=== PATIENT | female | born 1950 | race Caucasian/White ===

== ENCOUNTER 2021-01-05 07:08 | Day surgery (SDC) | payer MEDICARE, MEDICAID ==
[2020-12-31 15:43] LABS: COLOR,URINE YELLOW (Yellow); GLUCOSE, URINE NEGATIVE (Neg); KETONES,URINE NEGATIVE (Neg); LEUKOCYTE ESTERASE ,URINE NEGATIVE (Neg); NITRITES, URINE NEGATIVE (Neg); OCCULT BLOOD,URINE TRACE-INTACT (Neg); PROTEIN,URINE NEGATIVE (Neg); UROBILINOGEN,URINE 0.2 E.U/dL (0.2-1.0)
[2020-12-31 15:44] LABS: CLARITY,URINE SLIGHTLY CLOUDY (Clear); UA COLLECTION TYPE CLN CATCH MIDSTREAM
[2020-12-31 15:48] LABS: BASOPHILS # (AUTO) 0.1 X10'3 (0-0.2); BASOPHILS % (AUTO) 0.7 % (0-1); EOSINOPHILS # (AUTO) 0.3 X10'3 (0-0.9); EOSINOPHILS % (AUTO) 2.5 % (0-6); LYMPHOCYTES # (AUTO) 1.7 X10'3 (1.1-4.8); MEAN CORPUSCULAR HEMOGLOBIN 32.3 PG (27.0-31.0); MEAN CORPUSCULAR HGB CONC 33.8 g/dL (33.0-36.5); MEAN CORPUSCULAR VOLUME 95.4 FL (78-98); MEAN PLATELET VOLUME 7.1 FL (7.4-10.4); MONOCYTES # (AUTO) 0.7 X10'3 (0-0.9); MONOCYTES % (AUTO) 6.9 % (2-12); NEUTROPHILS # (AUTO) 7.8 X10'3 (1.8-7.7); NEUTROPHILS % (AUTO) 73.9 % (42-75); PRE OP HEMATOCRIT 41.7 % (35.0-45.0); PRE OP HEMOGLOBIN 14.1 g/dL (12.0-16.0); PRE OP PLATELET COUNT 301 X10'3 (140-440); RED BLOOD COUNT 4.37 X10'6 (4.20-5.60); RED CELL DISTRIBUTION WIDTH 14.9 % (11.5-14.5)
[2020-12-31 15:49] LABS: BACTERIA,URINE 1+ /HPF (Neg); MUCUS STRANDS NONE SEEN /LPF (Neg); SQUAMOUS EPITHELIAL CELL,UR FEW /LPF (FEW); WBC,URINE 0-4 /HPF (0-4)
[2020-12-31 15:50] LABS: STARCH,URINE FEW /HPF (NEGATIVE)
[2020-12-31 15:54] LABS: PRE OP PROTIME 10.7 SECONDS (9.0-12.0)
[2020-12-31 15:55] LABS: ALBUMIN 3.8 G/DL (3.4-5.0); ALKALINE PHOSPHATASE 109 IU/L (46-116); BLOOD UREA NITROGEN 14 MG/DL (7-18); BUN/CREATININE RATIO 10.1 (6.6-38.0); CALCIUM 9.1 MG/DL (8.5-10.1); CHLORIDE 103 MMOL/L (99-107); CREATININE 1.39 MG/DL (0.40-0.90); PRE OP ALT 18 U/L (30-65); PRE OP ANION GAP 10 (8-16); PRE OP AST 14 U/L (10-37); PRE OP BILIRUB, TOTAL 0.5 MG/DL (0.0-1.0); PRE OP POTASSIUM 4.3 MMOL/L (3.4-5.1); PRE OP SODIUM 138 MMOL/L (135-145); TOTAL CARBON DIOXIDE 25.5 MMOL/L (24-32); TOTAL PROTEIN 7.8 G/DL (6.4-8.2); eGFR 37 ML/MIN
[2020-12-31 15:57] LABS: PRE OP GLUCOSE 110 MG/DL (70-104)
[~2021-01-05] VITALS: Ht 185.4 cm; Wt 79.0 kg
[2021-01-05] VITALS (9 sets, daily range): BP systolic 98–146; BP diastolic 42–64
[~2021-01-05 07:08] MED LIST: ALPR0.5T9 PO; AMLO2.5T5 PO; ASPI-280 PO; ATOR20TA66 PO; CARV-50 PO; DIPH25CA83 PO; DOCUMENT DATE & TIME OF BETA-BLOCKER PO ONE; FERR325T32 PO; GABA-530 PO; IPRA4AER PO; LEVO125T8 PO; LOPE-144 PO; OMEP-50 PO; VITA-268 PO; albuterol 2.5 MG/3 ML nebule NEB ONE; cefazolin/dext.iso 2gm/100ml IV ONE; clindamycin-Cleocin 900mg/D5W 50 ML IV ONE; famotidine 20mg tablet PO ONE; normal saline 1000ml 1,000 ML IV SCH
[2021-01-05] MEDS ORDERED: BUPIVAcaine/PF 2.5 mg/ml (0.25%) 30ml vial ONE ×2 (07:39→09:42)
[2021-01-05] MEDS ORDERED: BUPIVACAINE liposomal/PF 13.3 MG/ML vial IM ONE (09:42)
[2021-01-05] MEDS ORDERED: midazolam 1 mg/ML 2ml injection ONE (09:52)
[2021-01-05] MEDS ORDERED: fentaNYL /PF 50mcg/ml 5ml ampule ONE (09:52)
[2021-01-05] MEDS ORDERED: morphine 2 MG/ML inj. syringe IV PRN (10:10)
[2021-01-05] MEDS ORDERED: acetaminophen 1,000mg/100ml IV 100 ML IV PRN (10:10)
[2021-01-05] MEDS ORDERED: ondansetron/PF 4mg/2ml inj IV PRN (10:10)
[2021-01-05] MEDS ORDERED: ringers solution, lacted 1,000 ML IV SCH (10:10)
[2021-01-05] MEDS ORDERED: proCHLORperazine 10 MG/2 ml inj IV PRN (10:10)
[2021-01-05] MEDS ORDERED: morphine 4 MG/ML inj SYRINge IV PRN (10:10)
[2021-01-05] MEDS ORDERED: labetalol 20mg/4ml (5mg/ml) syringe IV PRN (10:10)
[2021-01-05] MEDS ORDERED: meperidine/PF 25mg/ml syringe IV PRN ×3 (10:10)
[2021-01-05] MEDS ORDERED: hydrALAZINE 20mg/ml inj. IV PRN (10:10)
[2021-01-05] MEDS ORDERED: sevoflurane 250ml liquid IH ONE (10:25)
[2021-01-05] MEDS ORDERED: LIDOcaine 2% 5ml jelly ONE (10:34)
[2021-01-05] MEDS ORDERED: LIDOcaine 2% (20mg/ml) 5ml vial ONE (11:25)
[2021-01-05] MEDS ORDERED: propofol inj 20 ML IV ONE (11:25)
[2021-01-05] MEDS ORDERED: ondansetron/PF 4mg/2ml inj ONE (11:25)
[2021-01-05] MEDS ORDERED: dexamethasone sod phosphate 4mg/ml inj. ONE (11:25)
[2021-01-05] MEDS ORDERED: rocuronium 10mg/ml inj IV ONE (11:25)
[2021-01-05] MEDS ORDERED: glycopyrrolate 0.2mg/ml inj ONE (11:26)
[2021-01-05] MEDS ORDERED: neostigmine methylsulfate 1 MG/ML 10ml vial ONE (11:26)
[2021-01-05] MEDS ORDERED: ipratropium/albuterol 3ml nebule NEB PRN (12:35)
--- NOTE | 2021-01-05 13:12 | NUR ---
ALL DISCHARGE CRITERIA HAS BEEN MET. VSS, PAIN AT A TOLERABLE LEVEL, VOIDING AND ABLE TO SAFELY AMBULATE AND TRANSFER SELF. IV TAKEN OUT WITHOUT ANY COMPLICATIONS. ALL DISCHARGE INSTRUCTIONS COVERED WITH PATIENT AND ALL QUESTIONS ANSWERED. PATIENT TAKEN OUT VIA WHEELCHAIR TO PERSONAL VEHICLE WHERE FAMILY/FRIEND DROVE PATIENT HOME. IS AND DEEP BREATHING AND COUGHING INSTRUCTIONS GIVEN. PATIENT 90% UPON LEAVING ON ROOM AIR. ( PER PRE SURGERY) VSS. SPOUSE GIVEN INSTRUCTIONS ON PAIN MEDS AND WHERE TO REPAIRER AND CHECKER AND PRECAUTIONS WELL. ABDOMINAL SITES ARE ALL CDI . Addendum: 01/05/21 at 1336 by David Garcia RN, RN Amended: Links added.
== END 2021-01-05 13:12 | disposition home or self-care (01) ==
LOC: PAS 07:08
PROVIDERS: ATTEND Surgery
DX: K43.9 Ventral hernia without obstruction or gangrene (principal); J43.9 Emphysema, unspecified; I10 Essential (primary) hypertension; E03.9 Hypothyroidism, unspecified; F41.0 Panic disorder [episodic paroxysmal anxiety]; G62.9 Polyneuropathy, unspecified; F17.210 Nicotine dependence, cigarettes, uncomplicated; Z85.048 Personal history of other malignant neoplasm of rectum, rectosigmoid junction, and anus; Z90.710 Acquired absence of both cervix and uterus; Z98.890 Other specified postprocedural states; Z87.01 Personal history of pneumonia (recurrent); Z88.2 Allergy status to sulfonamides; Z88.8 Allergy status to other drugs, medicaments and biological substances; Z88.0 Allergy status to penicillin; Z95.1 Presence of aortocoronary bypass graft; Z90.49 Acquired absence of other specified parts of digestive tract; Z79.01 Long term (current) use of anticoagulants; Z79.899 Other long term (current) drug therapy; Z82.49 Family history of ischemic heart disease and other diseases of the circulatory system
CPT/HCPCS: 36415; 49652; 64488; 80053; 81001; 82948; 85025; 85610; 85730; 93005; 94640; 94760; C1758; C9290; J1100; J2001; J2250; J2405; J2704; J2710; J3010; J3490; J7030; J7120; S2900; A4215; A4618

== ENCOUNTER 2022-09-06 08:35 | Day surgery (SDC) | payer MEDICARE, MEDICAID ==
[~2022-09-06] VITALS: Ht 165.1 cm; Wt 73.4 kg
[2022-09-06] VITALS (15 sets, daily range): BP systolic 102–159; BP diastolic 37–76
[~2022-09-06 08:35] MED LIST changes: -DOCUMENT DATE & TIME OF BETA-BLOCKER PO ONE; -OMEP-50 PO; +OMEP20CA16 PO; -albuterol 2.5 MG/3 ML nebule NEB ONE; -cefazolin/dext.iso 2gm/100ml IV ONE; -clindamycin-Cleocin 900mg/D5W 50 ML IV ONE; -famotidine 20mg tablet PO ONE; -normal saline 1000ml 1,000 ML IV SCH
[2022-09-06] MEDS ORDERED: albumin 25% 100mL bottle x 1 IV PRN (09:15)
[2022-09-06] MEDS ORDERED: normal saline 1000ml 1,000 ML IV PRN (09:15)
[2022-09-06] MEDS ORDERED: ALBUTEROL (09:22)
[2022-09-06] MEDS ORDERED: CITA20TA26 PO (09:23)
[2022-09-06] MEDS ORDERED: ALPR0.5T8 PO (09:23)
[2022-09-06] MEDS ORDERED: [UNRECOGNIZED DRUG - OTHER] PO (09:29)
[2022-09-06] MEDS ORDERED: NITR0.4T51 SL (09:29)
[2022-09-06] MEDS ORDERED: IPRA4AER IH (09:29)
[2022-09-06 09:51] LABS: BASOPHILS # (AUTO) 0.1 X10'3 (0-0.2); BASOPHILS % (AUTO) 1.2 % (0-1); EOSINOPHILS # (AUTO) 0.2 X10'3 (0-0.9); HEMATOCRIT 40.5 % (35.0-45.0); HEMOGLOBIN 13.5 g/dl (12.0-16.0); LYMPHOCYTES # (AUTO) 1.9 X10'3 (1.1-4.8); LYMPHOCYTES % (AUTO) 24.8 % (21-51); MEAN CORPUSCULAR HEMOGLOBIN 31.6 PG (27.0-31.0); MEAN CORPUSCULAR HGB CONC 33.3 g/dL (33.0-36.5); MEAN CORPUSCULAR VOLUME 94.8 FL (78-98); MEAN PLATELET VOLUME 7.2 FL (7.4-10.4); MONOCYTES # (AUTO) 0.6 X10'3 (0-0.9); MONOCYTES % (AUTO) 7.3 % (2-12); NEUTROPHILS % (AUTO) 64.7 % (42-75); PLATELET COUNT 277 X10'3 (140-440); RED BLOOD COUNT 4.27 X10'6 (4.20-5.60); RED CELL DISTRIBUTION WIDTH 14.4 % (11.5-14.5); WHITE BLOOD COUNT 7.7 X10'3 (4.5-11.0)
[2022-09-06 09:53] LABS: ALBUMIN 3.3 G/DL (3.4-5.0); ANION GAP 10 (8-16); BLOOD UREA NITROGEN 12 MG/DL (7-18); BUN/CREATININE RATIO 9.8 (6.6-38.0); CALCIUM 8.7 MG/DL (8.5-10.1); CHLORIDE 104 MMOL/L (99-107); CREATININE 1.22 MG/DL (0.40-0.90); SODIUM 137 MMOL/L (135-145); TOTAL CARBON DIOXIDE 23.3 MMOL/L (24-32); eGFR 43 ML/MIN
[2022-09-06] MEDS ORDERED: midazolam 1 mg/ML 2ml injection ONE (10:26)
[2022-09-06] MEDS ORDERED: fentaNYL/PF 50MCG/1 ML 2ML syringe ONE (10:26)
[2022-09-06 10:33] LABS: GLUCOSE 96 MG/DL (70-104)
== END 2022-09-06 15:20 | disposition home or self-care (01) ==
LOC: SSTAY O 08:35
PROVIDERS: ATTEND Radiology Vascular & Interventional Radiology
DX: R91.8 Other nonspecific abnormal finding of lung field (principal); C34.92 Malignant neoplasm of unspecified part of left bronchus or lung; Z88.0 Allergy status to penicillin; Z88.2 Allergy status to sulfonamides; Z88.8 Allergy status to other drugs, medicaments and biological substances; Z79.899 Other long term (current) drug therapy; Z79.82 Long term (current) use of aspirin; Z79.01 Long term (current) use of anticoagulants; Z85.41 Personal history of malignant neoplasm of cervix uteri; Z85.048 Personal history of other malignant neoplasm of rectum, rectosigmoid junction, and anus
CPT/HCPCS: 32408; 36415; 71045; 80048; 85025; 85610; 88305; 88341; 88342; J2250; J3010; J7030; 77012; 88173; 99152; 99153; A4615; A6449

== ENCOUNTER 2022-10-03 08:34 | Day surgery (SDC) | payer MEDICARE, MEDICAID ==
[~2022-10-03] VITALS: Ht 165.1 cm; Wt 73.7 kg
[2022-10-03] VITALS (13 sets, daily range): BP systolic 115–148; BP diastolic 43–76
[~2022-10-03 08:34] MED LIST changes: +ALBUTEROL; +ALPR0.5T8 PO; +CITA20TA26 PO; -DIPH25CA83 PO; +IPRA4AER IH; -IPRA4AER PO; +NITR0.4T51 SL; -VITA-268 PO; +[UNRECOGNIZED DRUG - OTHER] PO
[2022-10-03] MEDS ORDERED: normal saline 1000ml 1,000 ML IV PRN (08:55)
[2022-10-03 09:26] LABS: BASOPHILS # (AUTO) 0.1 X10'3 (0-0.2); BASOPHILS % (AUTO) 1.1 % (0-1); EOSINOPHILS # (AUTO) 0.2 X10'3 (0-0.9); EOSINOPHILS % (AUTO) 2.6 % (0-6); HEMATOCRIT 41.2 % (35.0-45.0); HEMOGLOBIN 13.4 g/dl (12.0-16.0); LYMPHOCYTES # (AUTO) 1.3 X10'3 (1.1-4.8); LYMPHOCYTES % (AUTO) 15.9 % (21-51); MEAN CORPUSCULAR HEMOGLOBIN 30.7 PG (27.0-31.0); MEAN CORPUSCULAR HGB CONC 32.5 g/dL (33.0-36.5); MEAN CORPUSCULAR VOLUME 94.3 FL (78-98); MONOCYTES # (AUTO) 0.6 X10'3 (0-0.9); MONOCYTES % (AUTO) 6.9 % (2-12); NEUTROPHILS # (AUTO) 5.9 X10'3 (1.8-7.7); NEUTROPHILS % (AUTO) 73.5 % (42-75); PLATELET COUNT 312 X10'3 (140-440); RED BLOOD COUNT 4.37 X10'6 (4.20-5.60); RED CELL DISTRIBUTION WIDTH 13.9 % (11.5-14.5)
[2022-10-03 09:32] LABS: ALBUMIN 3.3 G/DL (3.4-5.0); ANION GAP 9 (8-16); BLOOD UREA NITROGEN 8 MG/DL (7-18); BUN/CREATININE RATIO 6.3 (6.6-38.0); CALCIUM 8.6 MG/DL (8.5-10.1); CHLORIDE 104 MMOL/L (99-107); CREATININE 1.27 MG/DL (0.40-0.90); POTASSIUM 4.1 MMOL/L (3.5-5.1); SODIUM 136 MMOL/L (135-145); TOTAL CARBON DIOXIDE 22.7 MMOL/L (24-32); eGFR 41 ML/MIN
[2022-10-03 09:36] LABS: GLUCOSE 107 MG/DL (70-104)
[2022-10-03] MEDS ORDERED: midazolam 1 mg/ML 2ml injection ONE (11:19)
[2022-10-03] MEDS ORDERED: fentaNYL/PF 50MCG/1 ML 2ML syringe ONE (11:20)
[2022-10-03] MEDS ORDERED: LIDOcaine 1% (10mg/ml) 2ml vial ONE (11:20)
== END 2022-10-03 15:34 | disposition home or self-care (01) ==
LOC: SSTAY O 08:34
PROVIDERS: ATTEND Radiology Vascular & Interventional Radiology
DX: R91.1 Solitary pulmonary nodule (principal); C34.11 Malignant neoplasm of upper lobe, right bronchus or lung; I25.10 Atherosclerotic heart disease of native coronary artery without angina pectoris; I10 Essential (primary) hypertension; Z85.048 Personal history of other malignant neoplasm of rectum, rectosigmoid junction, and anus; Z85.41 Personal history of malignant neoplasm of cervix uteri; Z95.1 Presence of aortocoronary bypass graft; Z98.890 Other specified postprocedural states; Z90.710 Acquired absence of both cervix and uterus; Z93.2 Ileostomy status; Z88.0 Allergy status to penicillin; Z88.2 Allergy status to sulfonamides; Z88.8 Allergy status to other drugs, medicaments and biological substances; Z79.899 Other long term (current) drug therapy
CPT/HCPCS: 10009; 36415; 71045; 80048; 85025; 85610; 88173; J2250; J3010; J3490; J7030; 32408; 77012; 88305; 88341; 88342; A4421; A4615; A6258; C1729; C1769

== ENCOUNTER 2023-03-21 23:30 | Inpatient (IN) | payer MEDICARE, MEDICAID ==
[~2023-03-21] VITALS: Ht 160 cm; Wt 63.6 kg
[~2023-03-21 23:30] MED LIST changes: -ALBUTEROL; -ALPR0.5T9 PO
[2023-03-22] VITALS (7 sets, daily range): BP systolic 127–147; BP diastolic 50–75; PULSE 84–94; RESP 15–22; TEMP 97.4–98.4; O2SAT 92–97
[2023-03-22] MEDS ORDERED: normal saline 1000ml 1,000 ML IV ONE (00:15)
[2023-03-22] MEDS ORDERED: ondansetron/PF 4mg/2ml inj IV ONE (00:15)
[2023-03-22] MEDS ORDERED: morphine 4 MG/ML inj SYRINge IV ONE (00:15)
[2023-03-22] MEDS ORDERED: normal saline 1000ml 1,000 ML IV SCH (00:25)
[2023-03-22] MEDS ORDERED: potassium Cl 40MEQ/1/2NS 520ml 520 ML IV PRN (00:25)
[2023-03-22] MEDS ORDERED: potassium Cl 20 mEq SR tablet PO PRN ×2 (00:25)
[2023-03-22] MEDS ORDERED: ondansetron/PF 4mg/2ml inj IV PRN (00:25)
[2023-03-22] MEDS ORDERED: magnesium 4gm in 100ml NS 100 ML IV PRN (00:25)
[2023-03-22] MEDS ORDERED: magnesium 2GM in 50ml NS 50 ML IV PRN (00:25)
[2023-03-22] MEDS ORDERED: acetaminophen 325mg tablet PO PRN (00:25)
[2023-03-22] MEDS ORDERED: magnesium Cl slow-release 64mg tablet PO PRN (00:25)
[2023-03-22 00:56] LABS: BASOPHILS % (AUTO) 0.3 % (0-1); EOSINOPHILS # (AUTO) 0.1 X10'3 (0-0.9); EOSINOPHILS % (AUTO) 0.6 % (0-6); HEMATOCRIT 25.6 % (35.0-45.0); HEMOGLOBIN 8.4 g/dl (12.0-16.0); LYMPHOCYTES # (AUTO) 1.1 X10'3 (1.1-4.8); LYMPHOCYTES % (AUTO) 7.3 % (21-51); MEAN CORPUSCULAR HEMOGLOBIN 31.4 PG (27.0-31.0); MEAN CORPUSCULAR HGB CONC 32.7 g/dL (33.0-36.5); MEAN PLATELET VOLUME 6.8 FL (7.4-10.4); MONOCYTES # (AUTO) 0.7 X10'3 (0-0.9); MONOCYTES % (AUTO) 4.7 % (2-12); NEUTROPHILS # (AUTO) 12.7 X10'3 (1.8-7.7); NEUTROPHILS % (AUTO) 87.1 % (42-75); PLATELET COUNT 249 X10'3 (140-440); RED BLOOD COUNT 2.67 X10'6 (4.20-5.60); RED CELL DISTRIBUTION WIDTH 16.4 % (11.5-14.5); WHITE BLOOD COUNT 14.6 X10'3 (4.5-11.0)
[2023-03-22 00:57] LABS: CLARITY,URINE CLOUDY (Clear); COLOR,URINE YELLOW (Yellow); GLUCOSE, URINE NEGATIVE (Neg); KETONES,URINE NEGATIVE (Neg); LEUKOCYTE ESTERASE ,URINE TRACE (Neg); NITRITES, URINE NEGATIVE (Neg); OCCULT BLOOD,URINE NEGATIVE (Neg); PROTEIN,URINE TRACE mg/dl (Neg)
[2023-03-22 01:05] LABS: APTT 26 SECONDS (22-32)
[2023-03-22 01:08] LABS: ALANINE AMINOTRANSFERASE 19 U/L (12-78); ALBUMIN 2.1 G/DL (3.4-5.0); ALBUMIN/GLOBULIN RATIO 0.6 (1.1-1.5); ALKALINE PHOSPHATASE 275 IU/L (46-116); ANION GAP 15 (8-16); ASPARTATE AMINO TRANSFERASE 67 U/L (10-37); BILIRUBIN,TOTAL 1.4 MG/DL (0.1-1.0); BLOOD UREA NITROGEN 22 MG/DL (7-18); BUN/CREATININE RATIO 15.4 (10.0-20.0); CALCIUM 8.9 MG/DL (8.5-10.1); CHLORIDE 98 MMOL/L (99-107); CREATININE 1.43 MG/DL (0.40-0.90); GLUCOSE 109 MG/DL (70-104); POTASSIUM 3.6 MMOL/L (3.5-5.1); SODIUM 136 MMOL/L (135-145); TOTAL CARBON DIOXIDE 23.2 MMOL/L (24-32); TOTAL PROTEIN 5.8 G/DL (6.4-8.2); eGFR 36 ML/MIN
[2023-03-22 01:09] LABS: UA COLLECTION TYPE FOLEY CATH
[2023-03-22 01:11] LABS: BACTERIA,URINE 4+ /HPF (Neg); RBC,URINE 0-2 /HPF (0-2); SQUAMOUS EPITHELIAL CELL,UR FEW /LPF (FEW)
[2023-03-22] MEDS: morphine 2 MG/ML inj. syringe IV PRN ×5 (02:20→21:46)
[2023-03-22 02:30] LABS: ANISOCYTOSIS 1+; NUCLEATED RED BLOOD CELLS 1 /100WBC (0-0); PLATELET ESTIMATE DECREASED; TOTAL CELLS COUNTED 100
[2023-03-22 02:31] LABS: BURR CELLS FEW; POLYCHROMASIA FEW; SCHISTOCYTES FEW
--- NOTE | 2023-03-22 06:25 | NUR ---
Problems reprioritized. Patient report given, questions answered & plan of care reviewed with EVIE JOSEPH.
--- NOTE | 2023-03-22 06:38 | NUR ---
Patient in room ORTHO 4016. I have received report from HECTOR Mukherjee and had the opportunity to ask questions and assume patient care.
[2023-03-22 06:46] LABS: POTASSIUM 3.9 MMOL/L (3.5-5.1)
[2023-03-22] MEDS ORDERED: levoFLOXACIN-Levaquin 500mg/D5 100 ML IV SCH (08:00)
[2023-03-22] MEDS ORDERED: K and/or MAG REPLACEMENT MC SCH (08:00)
[2023-03-22] MEDS ORDERED: scopolamine 1mg/72 hr patch TD SCH (11:50)
[2023-03-22] MEDS ORDERED: morphine ORAL 5MG/0.25 ML (Conc. morphine) oral syringe PO PRN (11:50)
[2023-03-22] MEDS ORDERED: morphine 2 MG/ML inj. syringe IV PRN (11:50)
[2023-03-22] MEDS ORDERED: acetaminophen 650mg rectal suppository RC PRN (11:50)
[2023-03-22] MEDS ORDERED: LORazepam 2 mg/ml vial IV PRN (11:50)
[2023-03-22] MEDS ORDERED: HALO2ORA3 (12:58)
[2023-03-22] MEDS ORDERED: MORP100S7 PO (12:58)
[2023-03-22] MEDS ORDERED: LORA-269 PO (12:58)
[2023-03-22] MEDS: cyclobenzaprine 10mg tablet PO PRN (14:22)
--- NOTE | 2023-03-22 15:08 | NUR ---
CHIEF SUBSTATION OPERATOR documentation: I have reviewed and agree with all interventions, assessments performed and documented by Pedro Garcia LVN .
--- NOTE | 2023-03-22 18:14 | NUR ---
Problems reprioritized. Patient report given, questions answered & plan of care reviewed with HECTOR Mukherjee.
--- NOTE | 2023-03-22 18:52 | NUR ---
Patient in room ORTHO 4016. I have received report from EVIE JOSEPH and had the opportunity to ask questions and assume patient care.
[2023-03-22] MEDS: morphine 10mg/0.5ml (conc. morphine) oral syringe PO PRN (20:27)
[2023-03-22] MEDS ORDERED: temazepam 15mg capsule PO PRN (21:00)
[2023-03-22] MEDS: LORazepam 1 MG tablet PO PRN (21:47)
[2023-03-23] MEDS: cyclobenzaprine 10mg tablet PO PRN (00:32)
[2023-03-23] MEDS: morphine 10mg/0.5ml (conc. morphine) oral syringe PO PRN (00:32)
[2023-03-23] MEDS: morphine 2 MG/ML inj. syringe IV PRN ×2 (03:52→11:41)
[2023-03-23] MEDS: LORazepam 1 MG tablet PO PRN (03:52)
--- NOTE | 2023-03-23 06:17 | NUR ---
Problems reprioritized. Patient report given, questions answered & plan of care reviewed with EVIE JOSEPH.
--- NOTE | 2023-03-23 06:40 | NUR ---
Patient in room ORTHO 4016. I have received report from HECTOR Mukherjee and had the opportunity to ask questions and assume patient care.
[2023-03-23 08:00] VITALS: RESP 18; O2SAT 95
[2023-03-23 12:41] VITALS: RESP 16
--- NOTE | 2023-03-23 12:57 | NUR ---
SENIOR CORPORATE STRATEGY MANAGER documentation: I have reviewed and agree with all interventions, assessments performed and documented by Pedro Garcia LVN .
--- NOTE | 2023-03-23 13:55 | NUR ---
Pt stable for discharge. Report called to prior to discharge. Report given to OPAL Damon. Patient left with all belongings. IV discontinued prior to discharge. Patient transported via [facility] to [facility].
== END 2023-03-23 13:10 | DRG 543 ==
LOC: ER 23:30 → ED HOLD 03-22 00:26 → ORTHO 4S 03-22 01:03
PROVIDERS: ADMIT Internal Medicine; ATTEND Internal Medicine
DX: M84.552A Pathological fracture in neoplastic disease, left femur, initial encounter for fracture (principal); C34.90 Malignant neoplasm of unspecified part of unspecified bronchus or lung; C78.5 Secondary malignant neoplasm of large intestine and rectum; N17.9 Acute kidney failure, unspecified; N39.0 Urinary tract infection, site not specified; Z51.5 Encounter for palliative care; E03.9 Hypothyroidism, unspecified; E78.5 Hyperlipidemia, unspecified; D63.8 Anemia in other chronic diseases classified elsewhere; F17.200 Nicotine dependence, unspecified, uncomplicated; F32.A Depression, unspecified; N18.9 Chronic kidney disease, unspecified; I12.9 Hypertensive chronic kidney disease with stage 1 through stage 4 chronic kidney disease, or unspecified chronic kidney disease; F41.0 Panic disorder [episodic paroxysmal anxiety]; G62.9 Polyneuropathy, unspecified; K21.9 Gastro-esophageal reflux disease without esophagitis; J43.9 Emphysema, unspecified; Z88.0 Allergy status to penicillin; Z88.2 Allergy status to sulfonamides; Z90.710 Acquired absence of both cervix and uterus; Z88.8 Allergy status to other drugs, medicaments and biological substances; Z79.899 Other long term (current) drug therapy; I25.2 Old myocardial infarction
CPT/HCPCS: 36415; 71045; 73502; 80053; 81001; 83735; 84132; 84145; 85007; 85025; 85610; 85730; 86885; 86900; 86901; 87077; 87081; 87088; 87186; 99285; A4314; G0378; J1956; J2270; J2405; J7030